=== PATIENT | male | born 1980 | race African-American/Black ===

== ENCOUNTER → 2020-08-18 10:26 | Outpatient (CLI) | payer OTHER, SELFPAY ==
--- NOTE | ~2020-08-18 | XR_ITS ---
XR lumbar spine 2-3V 08/18/2020 10:50 Indication: Low back pain Procedure: 3 views lumbar spine Comparison: No prior studies for comparison. Findings: There is disc narrowing at L5-S1. Vertebral body heights are maintained. Normal lumbar alig nment. No acute fracture or traumatic malalignment. No evidence for spondylolisthesis. Sacral foramen are symmetric. Impression: 1: Mild lumbar spondylosis. Reviewed, dictated and finalized at location B. Impression: 1: Mild lumbar spondylosis.
== END ==
PROVIDERS: PCP Emergency Medicine; Visit Provider Emergency Medicine
DX: M47.896 Other spondylosis, lumbar region (principal)
CPT/HCPCS: 72100

== ENCOUNTER 2020-10-30 10:08 | Outpatient (NON) | payer OTHER, SELFPAY ==
[2020-10-31 01:01] LABS: SARS-CoV-2 RNA PCR Positive
== END 2020-10-30 10:09 ==
LOC: ANHCOVIDDT 10:09
PROVIDERS: PCP Emergency Medicine; Visit Provider Emergency Medicine
DX: U07.1 COVID-19 (principal)
CPT/HCPCS: 87635; C9803; U0003

== ENCOUNTER 2021-02-21 11:34 | Emergency (ER) | payer OTHER, SELFPAY ==
--- NOTE | ~2021-02-21 | XR_ITS ---
EXAMINATION: XR chest 2V 02/21/2021 12:20 INDICATION: Midline chest pain for 3 days PROCEDURE: 2 view chest COMPARISON: No prior studies for comparison. FINDINGS: The lungs are clear. The cardiomediastinal silhouette is within normal limits. There are no pleural effusions. There is no pneumothorax suspected. IMPRESSION: 1: NO ACUTE CARDIOPULMONARY DISEASE. Reviewed, dictated and finalized at location A.
--- NOTE | 2021-02-21 11:35 | ECG_ITS ---
Measurements Intervals [place] Rate: 65 P: 16 [place]: 188 QRS: -10 QRSD: 108 T: 7 QT: 361 QTc: 377 Interpretive Statements SINUS RHYTHM VOLTAGE CRITERIA FOR LVH MINIMAL Q WAVES- HIGH LATERAL LEADS BORDERLINE T WAVE ABNORMALITY- INFERIOR LEADS BORDERLINE ECG Electronically Signed On 02-21-2021 13:39:56 CDT by Woody Guzman D.O.
[2021-02-21 11:36] VITALS: BP 148/95; PULSE 74; RESP 16; TEMP 36.6; O2SAT 99
[2021-02-21 12:09] VITALS: PULSE 72
[2021-02-21 12:13] LABS: Basophils Percent Auto 0.4 % (0.2-1.2); Eosinophils Absolute Auto 0.3 K/mm3 (0-0.3); Eosinophils Percent Auto 3.8 % (0-4.4); Hematocrit 44.1 % (42.0-52.0); Hemoglobin 13.8 g/dL (14.0-18.0); Immature Granulocyte Absolute 0.01 K/mm3 (0.00-0.031); Immature Granulocyte Percent A 0.1 % (0-0.5); Lymphocytes Absolute Auto 2.45 K/mm3 (0.9-3.2); Lymphocytes Percent Auto 30.7 % (18.3-44.2); Mean Corpuscular HGB Conc 31.3 g/dl (32-36); Mean Corpuscular Hemoglobin 26.3 pg (26-34); Mean Platelet Volume 9.5 fl (7.4-10.4); Monocytes Absolute Auto 0.4 K/mm3 (0.1-0.6); Monocytes Percent Auto 5.5 % (2.6-8.5); Neutrophils Absolute Auto 4.7 K/mm3 (1.3-6.7); Neutrophils Percent Auto 59.5 % (45.5-73.1); Platelet Count Result 304 k/mm3 (150-375); Red Blood Count 5.25 M/mm3 (4.6-6.20); Red Cell Distribution Width 14.8 % (11.5-14.5)
--- NOTE | 2021-02-21 12:15 | ED.CHESTPAIN ---
HPI - Chest Pain General Chief Complaint: Chest Pain Stated Complaint: CP,HTN Time Seen by Provider: 02/21/21 11:38 Source: patient, EMS and RN notes reviewed Mode of arrival: EMS Limitations: no limitations History of Present Illness HPI narrative: Patient 40 years old -[place] male presents to the ED by ambulance complaining of retrosternal sharp stabbing pain started 3 days ago, intermittent, maximum 3 seconds each time, at rest, no radiation. Patient went to his family physician today who referred him to the emergency room by ambulance. Currently patient is pain-free. Patient had a recent diagnosis of hypertension 3 months ago, patient is adopted, does not know his parents or their family history, patient lives alone, denies any history of depression, he carries photography equipment almost every day, history of COVID-19 infection October 2020, patient denies any fever, chills, nausea, vomiting, shortness of breath, back pain, headache. Related Data Allergies Allergy/AdvReac Type Severity Reaction Status Date / Time No Known Allergies Allergy Unverified 05/11/19 01:59 Review of Systems Review of Systems: Narrative: CONSTITUTIONAL: Denies fever, chills, or sweats. EYES: Denies visual changes, redness, or discharge. ENT: Denies rhinorrhea, congestion, sore throat, or otalgia. CARDIOVASCULAR: Denies chest pain, palpitations, or edema. RESPIRATORY: Denies cough or dyspnea. GASTROINTESTINAL: Denies abdominal pain, nausea, vomiting, or diarrhea. GENITOURINARY: Denies dysuria or hematuria. SKIN: Denies rash or itching. MUSCULOSKELETAL: Denies back pain, joint pain, or myalgia. NEUROLOGIC: Denies headache, numbness, or weakness. PSYCHIATRIC: Denies anxiety or depression. Exam Narrative: Exam Narrative: General appearance: Well-developed, well-nourished Skin: Normal color Head: Normocephalic, nontraumatic Eyes: Clear conjunctiva ENT: Oropharynx normal, ears normal, nose normal Neck: Supple, nontender Chest and respiratory: Airway patent, no respiratory distress, no accessory muscle use Heart: Regular rate/rhythm Abdomen: Soft, nontender, no organomegaly, quiet bowel sounds Vascular: Normal peripheral pulses, normal capillary refill. Musculoskeletal: Normal range of motion, nontender back Neurologic: Alert and oriented ?3, [employer] is normal as tested, no gross motor deficit Course Course Emergency Course: Stable Vital Signs Vital signs: Vital Signs Temperature 36.6 C 02/21/21 11:36 Pulse Rate 74 02/21/21 11:36 Respiratory Rate 16 02/21/21 11:36 Blood Pressure 148/95 H 02/21/21 11:36 Pulse Oximetry 99 02/21/21 11:36 Temperature 36.6 C 02/21/21 11:36 Pulse Rate 70 02/21/21 12:50 Respiratory Rate 21 H 02/21/21 12:50 Blood Pressure 126/78 02/21/21 12:50 Pulse Oximetry 98 02/21/21 12:50 MDM - Chest Pain MDM Narrative Medical decision making narrative: Patient presents with periodic retrosternal sharp chest pain that lasts maximum 3 seconds each time, at rest. Musculoskeletal, stress, atypical chest pain is my concern. Labs, chest x-ray, hospita ordered. Further plan, Differential Diagnosis Differential diagnosis: Likely atypical chest pain, costochondritis and chest pain Lab Data Result diagrams: 02/21/21 12:06 02/21/21 12:06 Labs: Lab Results 02/21/21 02/21/21 02/21/21 Range/Units 12:06 12:06 12:06 WBC 8.0 (4.5-10.0) K/mm3 RBC 5.25 (4.6-6.20) M/mm3 Hgb 13.8 L (14.0-18.0) g/dL Hct 44.1 (42.0-52.0) % MCV 84.0 (80-100) fl MCH 26.3 (26-34) pg MCHC 31.3 L (32-36) g/dl RDW 14.8 H (11.5-14.5) % Plt Count 304 (150-375) k/mm3 MPV
[2021-02-21 12:23] LABS: INR 0.9; Prothrombin Time 12.3 Seconds (11.1-14.7)
[2021-02-21 12:24] LABS: Partial Thromboplastin Time 30.9 SECONDS (22.3-36.8)
[2021-02-21 12:29] LABS: D Dimer 0.27 ug/mL (<0.48)
[2021-02-21 12:41] LABS: Troponin I < 0.012 ng/mL (0.000-0.034)
[2021-02-21 12:50] VITALS: BP 126/78; PULSE 70; RESP 21; O2SAT 98
[2021-02-21 12:53] LABS: Alanine Aminotransferase 17 U/L (4-50); Albumin Level 3.8 g/dL (3.5-5.1); Alkaline Phosphatase 84 U/L (38-126); Anion Gap 3 mmol/L (8-16); Aspartate Amino Transferase 25 U/L (17-59); Bilirubin,Total 0.2 mg/dL (0.2-1.3); Blood Urea Nitrogen 14 mg/dL (9-20); Calcium 8.4 mg/dL (8.4-10.2); Carbon Dioxide 32 mmol/L (22-30); Chloride 103 mmol/L (98-107); Estimated CRCL calculation 121 ml/min; Estimated Glomerular Filt Rate > 60; Glucose 103 mg/dL (75-110); Potassium 3.8 mmol/L (3.4-5.0); Sodium 138 mmol/L (137-145)
[2021-02-21 13:20] VITALS: BP 130/63; PULSE 75; RESP 18; O2SAT 100
== END 2021-02-21 13:22 | disposition home or self-care (01) ==
PROVIDERS: Emergency Provider Emergency Medicine; PCP Emergency Medicine
DX: R07.9 Chest pain, unspecified (principal); I10 Essential (primary) hypertension
CPT/HCPCS: 36415; 71046; 80053; 84484; 85025; 85380; 85610; 85730; 93005; 99284